=== PATIENT | male | born 1950 | race Hispanic/Latino ===

== ENCOUNTER → 2022-10-05 | Outpatient (CLI) | payer OTHER | END | disposition home or self-care (01) | LOC: RAH 12:35 | PROVIDERS: ATTEND Internal Medicine Cardiovascular Disease | DX: Z13.6 Encounter for screening for cardiovascular disorders (principal); I51.5 Myocardial degeneration | CPT/HCPCS: 75571 ==

== ENCOUNTER → 2023-05-10 | Outpatient (CLI) | payer OTHER ==
[~2023-05-10] MED LIST: REGADENOSON 0.4 MG/5 ML PF SYG IVP ONE
== END | disposition home or self-care (01) ==
LOC: SHCH 09:07
PROVIDERS: ATTEND Internal Medicine Cardiovascular Disease
DX: R93.1 Abnormal findings on diagnostic imaging of heart and coronary circulation (principal); I10 Essential (primary) hypertension; E78.00 Pure hypercholesterolemia, unspecified; E11.9 Type 2 diabetes mellitus without complications; Z79.84 Long term (current) use of oral hypoglycemic drugs; Z79.899 Other long term (current) drug therapy
CPT/HCPCS: 78452; 96374; 93017; J2785; A9500 ×2

== ENCOUNTER 2024-05-16 17:51 | Emergency (ER) | payer OTHER ==
[~2024-05-16] VITALS: Ht 182.9 cm; Wt 77.1 kg
[2024-05-16] MEDS: MORPHINE 4 MG SYG IVP ONE (19:09)
[2024-05-16] MEDS: ONDANSETRON 4MG INJ IVP ONE (19:09)
[2024-05-16] MEDS: FENTANYL CITRATE PF 50 MCG/1 ML 2ML VIAL IVP ONE (21:23)
[2024-05-16] MEDS: MIDAZOLAM HCL 1 MG/ML 2ML VIAL IVP ONE ×2 (21:25→21:26)
[2024-05-16] MEDS: KETAMINE 50MG/ML SYRINGE 50 MG/ML DISP.SYRIN IM ONE (21:26)
[2024-05-16] MEDS: PROPOFOL 10 MG/ML 20ML VIAL IV SCH (21:28)
[2024-05-16] MEDS: FENTANYL CITRATE PF 50 MCG/1 ML 2ML VIAL ONE (21:38)
[2024-05-16] MEDS: PROPOFOL 10 MG/ML 20ML VIAL IV ONE (21:38)
[2024-05-16] MEDS: 0.9%NACL 1000ML 1,000 ML IV ONE (22:04)
[2024-05-16 23:00] VITALS: BP 115/56; PULSE 72; RESP 18; O2SAT 98
== END 2024-05-16 23:06 | disposition home or self-care (01) ==
LOC: EDH 17:51
DX: S43.004A Unspecified dislocation of right shoulder joint, initial encounter (principal); R51.9 Headache, unspecified; M54.2 Cervicalgia; E11.9 Type 2 diabetes mellitus without complications; I10 Essential (primary) hypertension; E78.00 Pure hypercholesterolemia, unspecified; W01.198A Fall on same level from slipping, tripping and stumbling with subsequent striking against other object, initial encounter; Y93.89 Activity, other specified; Y92.89 Other specified places as the place of occurrence of the external cause; Y99.8 Other external cause status
CPT/HCPCS: 99285; 70450; 23650; 96374; 96375; 99152; 73030 ×2; 72125; J3010; J2250 ×2; J2704; J2405; J2270; J3490; G0500